=== PATIENT | female | born 1965 | race Caucasian/White ===

== ENCOUNTER 2017-10-20 20:22 | Emergency (ER) | payer BC ==
[2017-10-20] MEDS ORDERED: MORPHINE SULFATE 4MG/ML PREFILLED SYRINGE IVP ONE (21:17)
[2017-10-20] MEDS ORDERED: ONDANSETRON HCL IV 4 MG/2 ML VIAL IVP ONE (21:17)
--- NOTE | 2017-10-20 21:23 | Emergency Department Record ---
History of Present Illness - General Chief complaint: Pain Stated complaint: RT SIDE PAIN/RT SHOULDER PAIN Time Seen by Provider: 10/20/17 21:17 Source: Patient Mode of Arrival: Ambulatory Limitations: No limitations - History of Present Illness Initial comments: 52 yo female presents to ED for evaluation of progressively worsening RUQ pain ( began tonight) and right shoulder pain that began 4 days ago that worsens with movement and deep inspiration. Patient does report a lot of activity 5 days ago which may have caused her shoulder discomfort, but her when her abdominal pain symptoms began this evening the patient became concerned about her gall bladder. Patient denies trauma to the shoulder, denies nausea/vomiting, but does report subjective fevers/chills over the past several days. Patient denies health problems at her baseline, denies previous abdominal surgery. MD Complaint: Abdominal Pain, Joint pain Onset/Timin -: Days(s) Location: Right, Shoulder History of Same: No Quality: Aching Consistency: Intermittent Improves with: Nothing Worsens with: Other (Deep breaths, movement) Associated Symptoms: Denies other symptoms - Related Data Home Medications Medication Instructions Recorded Confirmed Last Taken Alprazolam [Xanax] 0.25 mg PO ASDIR PRN 10/20/17 10/20/17 Unknown Bupropion HCl [Wellbutrin Sr] 150 mg PO DAILY 10/20/17 10/20/17 Unknown Cholecalciferol (Vitamin D3) 50,000 unit PO WEEKLY 10/20/17 10/20/17 Unknown [Vitamin D] Doxycycline Hyclate [Vibramycin] 100 mg PO BID 10/20/17 10/20/17 Unknown Guanfacine HCl 1 mg PO DAILY 10/20/17 10/20/17 Unknown Omeprazole [Prilosec] 20 mg PO DAILY 10/20/17 10/20/17 Unknown Thyroid,Pork [Thyroid] 2 tab PO DAILY 10/20/17 10/20/17 Unknown Allergies Allergy/AdvReac Type Severity Reaction Status Date / Time No Known Drug Allergies Allergy Verified 10/20/17 21:02 Travel Screening - Travel/Exposure Within Last 30 Days Have you traveled within the last 30 days?: No - Travel/Exposure Within Last Year Have you traveled outside the [place] in the last year?: No - Additonal Travel Details Have you been exposed to anyone with a communicable illness?: No - Travel Symptoms Symptom Screening: None Review of Systems Constitutional: Reports: Chills, Fever, Malaise. Denies: Night sweats Eyes: Denies: Eye discharge, Eye pain ENT: Denies: Congestion, Ear pain, Epistaxis Respiratory: Denies: Cough, Dyspnea Cardiovascular: Denies: Chest pain, Dyspnea on exertion Endocrine: Denies: Fatigue, Heat or cold intolerance Gastrointestinal: Reports: Abdominal pain. Denies: Nausea, Vomiting Genitourinary: Denies: Abnormal menses, Incontinence, Retention Musculoskeletal: Reports: Arthralgia. Denies: Back pain, Gout, Joint swelling Skin: Denies: Bruising, Change in color Neurological: Denies: Abnormal gait, Confusion, Headache, Seizure Psychiatric: Denies: Anxiety Hematological/Lymphatic: Denies: Anemia, Blood Clots Past Medical History - SOCIAL HISTORY Smoking Status: Never smoker Alcohol Use: None Drug Use: None - RESPIRATORY Hx Respiratory Disorders: No - CARDIOVASCULAR Hx Cardio Disorders: No - NEURO Hx Neuro Disorders: No - GI Hx GI Disorders: Yes Hx Reflux: Yes - Hx Genitourinary Disorders: No - ENDOCRINE Hx Endocrine Disorders: Yes Hx Thyroid Disease: Yes - MUSCULOSKELETAL Hx Musculoskeletal Disorders: No - PSYCH Hx Psych Problems: Yes Hx Anxiety: Yes - HEMATOLOGY/ONCOLOGY Hx Hematology/Oncology Disorders: No Family Medical History Any Significant Family History?: Yes Family Hx Comment (NOT TO BE USED IN PLACE OF ITEMS BELOW): [place] Physical Exam - General General Appearance: Alert, Oriented x3, Cooperative, Mild distress Limitations: No limitations - Head Head exam: Atraumatic, Normocephalic, Normal inspection Head exam detail: negative: Abrasion, Contusion, Waldron's sign, General tenderness, Hematoma, Laceration - Eye Eye exam: Normal appearance. negative: Conjunctival injection, Periorbital swelling, Periorbital tenderness, Scleral icterus - ENT Ear exam: negative: Auricular hematoma, Auricular trauma Nasal Exam: negative: Active bleeding, Discharge, Dried blood, Foreign body Mouth exam: negative: Drooling, Laceration, Muffled voice, Tongue elevation - Neck Neck exam: Normal inspection. negative: Meningismus, Tenderness - Respiratory Respiratory exam: Normal lung sounds bilaterally. negative: Rales, Respiratory distress, Rhonchi, Stridor - Cardiovascular Cardiovascular Exam: Regular rate, Normal rhythm, Normal heart sounds - GI/Abdominal GI/Abdominal exam: Soft, Tenderness (TTP RUQ>RLQ, no rebound, guarding is present with palp of the RUQ.). negative: Rebound, Rigid - Rectal Rectal exam: Deferred - exam: Deferred - Extremities Extremities exam: Full ROM, Other. negative: Calf tenderness, Pedal edema - Back Back exam: Denies: CVA tenderness (R), CVA tenderness (L) - Neurological Neurological exam: Alert, Normal gait, Oriented X3 - Psychiatric Psychiatric exam: Normal affect, Normal mood - Skin Skin exam: Normal color. negative: Abrasion Type of lesion: negative: abrasion Course Vital Signs 10/20/17 20:48 Temperature 98.7 F Pulse Rate [ 72 Pulse Ox Probe] Respiratory 18 Rate Blood Pressure 126/93 [Left Arm] Pulse Ox 98 - Reevaluation(s) Reevaluation #1: 10/20/17 22:37 Labs reviewed and are grossly unremarkable for an acute process. Patient is currently in CT for imaging of the abdomen as US is not available. Reevaluation #2: 10/20/17 23:55 CT Abdomen and Pelvis: Nonspecific findings of the small and large bowel suggesting enteritis, constipation. Patient was reassessed and reports significant improvement in her pain symptoms. Patient's physical examination is not consistent with PE as a cause of her symptoms, normal biox/pulse, no history of PE. Will have the patient return to ED tomorrow f0or dedicated US imaging of the gallbladder. Medical Decision Making - Lab Data Result diagrams: 10/20/17 21:35 10/20/17 21:35 Disposition Disposition: Discharge Clinical Impression: RUQ abdominal pain Disposition: Home, Self-Care Condition: (2) Stable Instructions: Abdominal Pain (ED) Additional Instructions: Return to ED at 9:30 AM for dedicated US imaging of the gallbladder. Follow-up with your family doctor in 3-5 days as directed. Ibuprofen as needed for your pain symptoms. Forms: Patient Portal Access Time of Disposition: 23:59 Quality - Quality Measures Quality Measures: N/A - Blood Pressure Screening Does Patient Have Any of the Following: No Blood Pressure Classification: Normal BP Reading Systolic Measurement: 109 Diastolic Measurement: 68 Screening for High Blood Pressure: < Normal BP, F/U Not Required > [G8783]
[2017-10-20] MEDS ORDERED: 0.9 % SODIUM CHLORIDE 1000ML 1,000 ML IV SCH (21:30)
[2017-10-20 21:58] LABS: HEMATOCRIT 42.7 % (35.0-47.0); HEMOGLOBIN 14.4 gm/dl (11.6-16.0); MEAN CELL VOLUME 91.2 fl (81-97); MEAN CORPUSCULAR HEMOGLOBIN 30.8 pg (27-33); MEAN CORPUSCULAR HGB CONC 33.7 g/dl (32-36); MEAN PLATELET VOLUME 11.3 fl (7.4-10.4); PLATELET COUNT 249 K/uL (130-400); RED BLOOD COUNT 4.68 M/uL (3.80-5.40); RED CELL DISTRIBUTION WIDTH 14.2 % (11.5-14.5); WHITE BLOOD COUNT W/O DIFF 6.3 K/uL (4.2-12.2)
[2017-10-20 22:02] LABS: URINE APPEARANCE CLEAR; URINE BILIRUBIN NEGATIVE (NEGATIVE); URINE BLOOD NEGATIVE (NEGATIVE); URINE COLOR YELLOW; URINE GLUCOSE (UA) NEGATIVE (NEGATIVE); URINE KETONE NEGATIVE (NEGATIVE); URINE LEUKOCYTE ESTERASE SMALL (NEGATIVE); URINE NITRITE NEGATIVE (NEGATIVE); URINE PROTEIN NEGATIVE (NEGATIVE); URINE UROBILINOGEN 0.2 E.U./dL (0.20 - 1.00)
[2017-10-20 22:13] LABS: BLOOD UREA NITROGEN 9 mg/dL (6-20); CREATININE 0.8 mg/dL (0.5-0.9); EST GLOMERULAR FILTRATION RATE > 60 mL/min
[2017-10-20 22:14] LABS: TOTAL PROTEIN 7.6 g/dL (6.6-8.7)
[2017-10-20 22:16] LABS: GLUCOSE,RANDOM 91 mg/dL (74-109)
[2017-10-20 22:18] LABS: ALB/GLOB RATIO 1.1 (1.1-1.8); ALKALINE PHOSPHATASE 72 U/L (35-104); ALT/SGPT 29 U/L (<33); AST/SGOT 47 U/L (10.0-35.0); LIPASE 25 U/L (13-60)
[2017-10-20 22:34] LABS: URINE BACTERIA FEW; URINE EPITHELIAL CELLS 0 - 2 (FEW); URINE RBC 0 - 2 (NONE SEEN)
[2017-10-20] MEDS ORDERED: KETOROLAC 30 MG/ML VIAL IVP ONE (23:16)
--- NOTE | 2017-10-22 13:09 | CT SCAN REPORT ---
EXAM: CT OF THE ABDOMEN AND PELVIS HISTORY: RIGHT SHOULDER PAIN. TECHNIQUE: CT of the abdomen and pelvis was performed following IV administration of 100 ml of Omnipaque 300 contrast. Lack of oral contrast limits evaluation of bowel. Comparison: None. FINDINGS: Limited evaluation of the lung bases is unremarkable. The osseous structures are grossly intact. Fatty infiltrative change to the liver. The spleen, adrenal glands, and pancreas are unremarkable. Subcentimeter left renal cyst. The kidneys are otherwise grossly unremarkable. The gallbladder is present, but contracted. There is a large amount of stool in the colon. Several nondilated fluid filled loops of small bowel. No gross evidence for bowel obstruction. No free air or free fluid. IUD in place. The appendix is normal. IMPRESSION: 1. IUD IN PLACE. FATTY INFILTRATIVE CHANGE TO THE LIVER. SUBCENTIMETER LEFT RENAL CYST. 2. A FEW NONDILATED FLUID FILLED LOOPS OF SMALL BOWEL MAY REFLECT MILD ILEUS. ABUNDANT STOOL IN THE COLON. 3. NOT STATED PREVIOUSLY, THERE ARE SEVERAL NONENLARGED MESENTERIC LYMPH NODES IN THE RIGHT LOWER QUADRANT. JOB NUMBER: [id number] [facility]
== END 2017-10-21 00:29 | disposition home or self-care (01) ==
LOC: ER 20:22
DX: R10.0 Acute abdomen (principal); M25.511 Pain in right shoulder
CPT/HCPCS: 99284 ×2; 96374; 96375; 83690; 80053; 81001; 85027; 74177; Q9967; J1885; J2405; J2274; J7030

== ENCOUNTER 2017-10-21 09:46 | Emergency (ER) | payer BC ==
[2017-10-21 10:13] LABS: HEMATOCRIT 40.1 % (35.0-47.0); HEMOGLOBIN 12.9 gm/dl (11.6-16.0); MEAN CELL VOLUME 93.3 fl (81-97); MEAN CORPUSCULAR HGB CONC 32.2 g/dl (32-36); MEAN PLATELET VOLUME 10.9 fl (7.4-10.4); PLATELET COUNT 262 K/uL (130-400); RED CELL DISTRIBUTION WIDTH 13.6 % (11.5-14.5); WHITE BLOOD COUNT W/O DIFF 3.4 K/uL (4.2-12.2)
[2017-10-21 10:25] LABS: BLOOD UREA NITROGEN 8 mg/dL (6-20); CREATININE 0.8 mg/dL (0.5-0.9); EST GLOMERULAR FILTRATION RATE > 60 mL/min
[2017-10-21 10:26] LABS: TOTAL PROTEIN 6.6 g/dL (6.6-8.7)
--- NOTE | 2017-10-21 10:26 | Emergency Department Record ---
History of Present Illness - General Chief Complaint: Abdominal Pain Stated Complaint: ULTRASOUND OF GALL BLADDER Time Seen by Provider: 10/21/17 09:57 Source: Patient Mode of Arrival: Ambulatory Limitations: No limitations - History of Present Illness Initial Comments: The patient is here for recheck and an US of her gall bladder. She was initially in the ER last evening due to RUQ AP and had a neg CT and lab work. Now she has returned as requested by her first ER doctor for recheck and a RUQ US. The patient denies any pain or discomfort presently. MD Complaint: Abdominal pain Onset/Timin -: Hour(s) Location: RUQ Quality: Aching Associated Symptoms: Denies other symptoms - Related Data Patient : No Previous Rx's Medication Instructions Recorded Sucralfate [Carafate] 1 gm PO QID #28 tablet 10/21/17 Allergies Allergy/AdvReac Type Severity Reaction Status Date / Time No Known Drug Allergies Allergy Verified 10/21/17 09:55 Travel Screening - Travel/Exposure Within Last 30 Days Have you traveled within the last 30 days?: No - Travel/Exposure Within Last Year Have you traveled outside the [place] in the last year?: No - Additonal Travel Details Have you been exposed to anyone with a communicable illness?: No - Travel Symptoms Symptom Screening: None Review of Systems Constitutional: Denies: Chills, Fever Eyes: Denies: Eye discharge ENT: Denies: Congestion Respiratory: Denies: Cough, Dyspnea Past Medical History - SOCIAL HISTORY Smoking Status: Never smoker Alcohol Use: None Drug Use: None - RESPIRATORY Hx Respiratory Disorders: No - CARDIOVASCULAR Hx Cardio Disorders: No - NEURO Hx Neuro Disorders: No - GI Hx GI Disorders: Yes Hx Reflux: Yes - Hx Genitourinary Disorders: No - ENDOCRINE Hx Endocrine Disorders: Yes Hx Thyroid Disease: Yes - MUSCULOSKELETAL Hx Musculoskeletal Disorders: No - PSYCH Hx Psych Problems: Yes Hx Anxiety: Yes - HEMATOLOGY/ONCOLOGY Hx Hematology/Oncology Disorders: No Family Medical History Any Significant Family History?: No Family Hx Comment (NOT TO BE USED IN PLACE OF ITEMS BELOW): [place] Physical Exam - General General Appearance: Alert, Oriented x3, Cooperative, No acute distress - Head Head exam: Atraumatic, Normocephalic, Normal inspection - Eye Eye exam: Normal appearance, PERRL - Neck Neck exam: Normal inspection, Full ROM. negative: Tenderness - Respiratory Respiratory exam: Normal lung sounds bilaterally, Chest wall tenderness (There is reproducible R lower lateral rib tenderness.). negative: Respiratory distress - Cardiovascular Cardiovascular Exam: Regular rate, Normal rhythm, Normal heart sounds - GI/Abdominal GI/Abdominal exam: Soft, Normal bowel sounds. negative: Distended, Guarding, Rebound, Rigid, Tenderness - Extremities Extremities exam: Normal inspection, Full ROM, Normal capillary refill. negative: Tenderness Course Vital Signs 10/21/17 09:50 Temperature 97.6 F Pulse Rate 78 Respiratory 16 Rate Blood Pressure 117/87 Pulse Ox 98 - Reevaluation(s) Reevaluation #1: The patient is doing very well at this time and is pain free. I did discuss the neg US and lab work with her and the need for F/U. She is to take Tylenol for the rib pain and Carafate as directed. She is to keep her appointment with Dr. Page Hahn for tomorrow. 10/21/17 12:31 Medical Decision Making - Data Complexity MDM Data: Labs Ordered and/or Reviewed, X-Ray Ordered and/or Reviewed - Lab Data Result diagrams: 10/21/17 10:05 10/21/17 10:05 Lab Results 10/21/17 Range/Units 10:05 WBC 3.4 L (4.2-12.2) K/uL RBC 4.30 (3.80-5.40) M/uL Hgb 12.9 (11.6-16.0) gm/dl Hct 40.1 (35.0-47.0) % MCV 93.3 (81-97) fl MCH 30.0 (27-33) pg MCHC 32.2 (32-36) g/dl RDW 13.6 (11.5-14.5) % Plt Count 262 (130-400) K/uL MPV 10.9 H (7.4-10.4) fl Eosinophils % Not Reportable Basophils % Not Reportable - Radiology Data Radiology results: Report reviewed (Abd US: Neg per Rad.) Disposition Disposition: Discharge Clinical Impression: RUQ abdominal pain Disposition: Home, Self-Care Condition: (2) Stable Instructions: Abdominal Pain (ED) Additional Instructions: PLease continue your regular medicines and add the Tylenol as needed for pain and the Carafate. Please see your family doctor for recheck tomorrow as directed. Return to the ER for any worsening symptoms of pain, or any L sided chest pain, shortness of breath, vomiting, or fever. Prescriptions: Sucralfate [Carafate] 1 gm PO QID #28 tablet Forms: Patient Portal Access Time of Disposition: 12:33 Quality - Quality Measures Quality Measures: N/A - Blood Pressure Screening View Details: Yes Does Patient Have Any of the Following: No Blood Pressure Classification: Hypertensive Reading Systolic Measurement: 113 Diastolic Measurement: 94 Screening for High Blood Pressure: < First Hypertensive BP, F/U Documented > [ G8950] First Hypertensive Follow-up Interventions: Referral to alternative/primary care provider.
[2017-10-21 10:27] LABS: GLUCOSE,RANDOM 87 mg/dL (74-109)
[2017-10-21 10:30] LABS: ALBUMIN 3.7 g/dL (4.0-5.0); ALKALINE PHOSPHATASE 74 U/L (35-104); ALT/SGPT 21 U/L (<33); AST/SGOT 21 U/L (10.0-35.0); LIPASE 22 U/L (13-60)
[2017-10-21 10:37] LABS: BILIRUBIN,DIRECT < 0.2 mg/dL (0-0.3)
--- NOTE | 2017-10-22 13:13 | ULTRASOUND REPORT ---
EXAM: ULTRASOUND OF THE ABDOMEN HISTORY: PAIN. TECHNIQUE: Complete transabdominal ultrasound of the abdomen was obtained. Comparison: CT 10/20/17. FINDINGS: The liver is homogeneous in echotexture without focal lesion. No gallstones or gallbladder wall thickening. The CBD measures 3 mm. The pancreas is not well seen due to bowel gas. The spleen is unremarkable at 8 cm. The right kidney measures 8 x 4 cm and the left kidney measures 10 x 5 cm. No renal calculus, mass, or hydronephrosis. The visualized abdominal aorta and inferior vena cava unremarkable. No free fluid. IMPRESSION: UNREMARKABLE ULTRASOUND OF THE ABDOMEN EXAMINATION. JOB NUMBER: [id number] [facility]
== END 2017-10-21 12:39 | disposition home or self-care (01) ==
LOC: ER 09:46
DX: R10.11 Right upper quadrant pain (principal)
CPT/HCPCS: 76700; 80048; 80076; 83690; 85027; 99283